=== PATIENT | female | born 1990 | race Two or more races ===

== ENCOUNTER 2024-12-12 08:32 | Outpatient (AMB) | payer MEDICAID, SELFPAY ==
[2024-12-12 08:47] VITALS: BP 105/67; PULSE 81; RESP 16; TEMP 36.6; O2SAT 97; BMI 47.7
--- NOTE | 2024-12-12 08:47 | AMB.OBINITIA ---
Vital Signs 12/12/24 08:47 Height 1.6 m Height Method Stated Weight 122.243 kg Weight Measurement Method Standing Scale BMI 47.7 BP 105/67 Blood Pressure Source Automatic Cuff Blood Pressure Location Left Upper Arm Position Sitting Respiration 16 Pulse 81 Pulse Source Monitor Temp 97.8 F Temp Source Oral Pulse Oximetry (%) 97 Oxygen Delivery Method Room Air Allergies/Home Meds Allergies & Medications Allergies NKA* Allergy (Uncoded 12/12/24 08:49) Medication Reconciliation PNV CMB#95/FERROUS FUMARATE/FA ( MULTIVITAMINS TABLET) 1 tab PO QDAY #0 tabs 05/17/16 [History Confirmed 12/12/24] Intake Visit Data Collection New Patient or Established: New Patient not seen in past 3 years at [facility] (considered New) Reason for Visit:: INITIAL CARE Seen by Clinical Staff ONLY (RN/MA): No Tracing Lathe Set Up Operator Required: No Do You Feel Safe at Home: Yes Authorities Contacted: N/A PCP or OBGYN visit in last 3 months: No Hx Now: Yes Are you currently on any form of Control: No Last menstrual period: 09/26/24 Pain Present Currently: No Pain Scale Used: Hodge-Martin/Numerical Pain scale:: 0 Smoking Status Smoking Status: Never smoker Questionnaires Covid-19 Vaccine Questionnaire Has patient been vacinated for Covid-19 Have you been vacinated for Covid-19: Yes PHQ-9 PHQ-2 Over the last 2 weeks, how often have you been bothered by any of the following problems? 1. Little interest or pleasure in doing things: not at all 2. Feeling down, depressed, or hopeless: not at all Total score: 0 PHQ-9 3. Trouble falling or staying asleep, or sleeping too much: Not at all 4. Feeling tired or having little energy: Not at all 5. Poor appetite or overeating: Not at all 6. Feeling bad about yourself - or that you are a failure or have let yourself or your family down: Not at all 7. Trouble concentrating on things, such as reading the newspaper or watching television: Not at all 8. Moving or speaking so slowly that other people could have noticed? - Or the opposite - being so fidgety or restless that you have been moving around a lot more than usual: not at all 9. Thoughts that you would be better off or of hurting yourself in some way: Not at all Total score: 0 Source: Developed by Drs. Davin Briceño, Laura Funes, Dustin Simmons and colleagues, with an educational theodore from [employer]. 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 FOB in [place] Tobacco History Smoking Status: Never smoker Second Hand Smoke Exposure: No Alcohol History Alcohol Intake: Never Domestic Abuse History Do You Feel Safe at Home: Yes History of Present Illness HPI Narrative The patient is a 34-year-old -0-0-1 history of in 2017 who presents for a new OB appointment. 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 The father the baby is currently residing in [place]. Patient denies any heavy bleeding. No pelvic pain. She has some fatigue breast tenderness and mild nausea. EDC by my ultrasound 07/03/2025. LMP 09/26/2024. OB Ultrasound Indication Indication: Size, dates, viability OB Ultrasound Ultrasound technique: transvaginal Gestational sac assessment: Presence, location, size, shape: Live IUP crown-rump length 3.3 cm corresponding to 10-week 1 day heart tones are noted at 170 bpm. COTTON AGENT: Past Medical History Additional Operations/Hospitalizations (year & reason): The patient has a history of x 1 in 2017 here at [facility] she mated to 4 cm. Baby weighed 9 pounds 8 ounces. She had a mini C-tuck . Other Relevant History: Patient denies any significant past medical history including no asthma, diabetes, or hypertension. Patient has a history of anemia in the past no blood transfusions. OB Initial Visit OB Flowsheet OB Flowsheet Initial Weight: Not Recorded Date <del>?</del> EGA Weight BP Alb Glu CTX Pres Fundal ht FHR Mov Dilation Station Effacement Hx Notes Visit Note 12/12/24 <del>?</del> 10w 1d 122.243 kg 105/67 10 active New OB. Labs done. NIPT ordered. Menstrual History Menstrual reliability: definite Flow: normal Menstrual regularity: irregular Monthly: No Age at menarche: 12 On control pills at conception: No Associated symptoms (LMP): Reports nausea, fatigue and breast tenderness OB History : 2 Para: 1 # of Living Children: 1 Delivery History 1st : Child's name: ELIANE date: 07/11/16 sex: male Gestational age at delivery (weeks): 40 Delivery type: weight (lbs): 4309.127 g Delivery complications: EMERGENCY C SECTION History of depression before or after : No Infection History & Risk Evaluation History of STDs: none Genetic Screening & History Genetic Screening/Teratology Counseling - Includes patient, baby's father, or anyone in either family with: 1. Patient's age 35 years or older as of estimated date of delivery: No 2. Thalassemia (Slovenian, Cymraes, Mediterranean, or Background); MCV less than 80: No 3. Neural Tube Defect (Meningomyelocele, Spina Bifida, or Anencephaly): No 4. Congenital Heart Defect: No 5. Down Syndrome: No 6. Robin-Sachs (Ashkenazi Yazidi, Cajun, [place]er [place]): No 7. Willem Disease (Ashkenazi Yazidi): No 8. Familial Dysautonomia (Ashkenazi Yazidi): No 9. Sickle Cell Disease or Trait (): No 10. Hemophilia or other blood disorders: No 11. Muscular Dystrophy: No 12. Cystic Fibrosis: No 13. Brian's Chorea: No 14. Mental Retardation/Autism: No 15. Other inherited genetic or chromosomal disorder: No 16. Maternal Metabolic Disorder (EG,TYPE 1 Diabetes, PKU): No 17. Patient or baby's father had a child with defects not listed above: No 18. Recurrent loss or a stillbirth: No 19. Medications (including supplements, vitamins, herbs or otc drugs)/illicit/recreational drugs/alcohol since last menstrual period: No 20. Any other: No Infection History 1. Live with someone with TB or exposed to TB: No 2. Rash or viral illness since last menstrual period: No 3. Hepatitis B,C: No Other (see comments) Source: [employer] Review of Systems Constitutional Constitutional: Reports fatigue Gastrointestinal Gastrointestinal: Reports nausea Endocrine Endocrine: Reports fatigue Exam General Limitations: no limitations General Appearance: alert, in no apparent distress, comfortable, cooperative, healthy appearing and well groomed Chest Chest inspection: Present normal inspection and symmetric chest wall rise Resp Respiratory exam: Present normal lung sounds bilaterally Card Cardiovascular exam: Present regular rate, normal rhythm and normal heart sounds Abdominal Abdominal exam: Present soft and normal bowel sounds Extremities Extremities exam: Present normal inspection and full ROM Psych Psychiatric exam: Present normal affect and normal mood Skin Skin exam: Present warm, dry, intact and normal color Office Procedures OBC Clinic LOC & Office Proc's Nursing/Assessment Patient Status: Established Patient OB Clinic Nursing Assessment: Medication Reconciliation, Update PMH in EMR and Vital Signs OB Clinic Coordination of Care: Complex Care and Chronic Disease 1-5, Consent,records obtained, informed consent, Education Simp Pt/Fam, Lab and Imaging orders, Results/Orders obtained and Staff clarify orders Special Needs: Heart tones Established Patient Charge Established Patient Point Assignment: 135 Established Patient Point Charge: EP Level 4 (120-155) Assessment & Plan Diagnosis / Problem List (1) : Status: Acute Qualifiers: Weeks of gestation: 10 weeks Qualified Code(s): Z3A.10 - 10 weeks gestation of Plan: Ordered labs and NIPT. Ordered official ultrasound for dating. (2) Status post primary low transverse section: Status: Acute Plan: For repeat low-transverse section at 39 weeks.
== END 2024-12-12 09:31 | disposition home or self-care (01) ==
LOC: HODSOBC 08:32
PROVIDERS: Supervising Provider Obstetrics & Gynecology; Visit Provider Obstetrics & Gynecology
DX: O09.291 Supervision of pregnancy with other poor reproductive or obstetric history, first trimester (principal); O34.211 Maternal care for low transverse scar from previous cesarean delivery; Z3A.10 10 weeks gestation of pregnancy
CPT/HCPCS: 99214; G0463

== ENCOUNTER 2024-12-26 10:46 | Outpatient (AMB) | payer MEDICAID, SELFPAY ==
--- NOTE | 2024-12-26 10:54 | OBCLNT_ITS ---
Vital Signs 12/26/24 10:59 Height 1.6 m Height Method Stated Weight 68.096 kg Weight Measurement Method Standing Scale BMI 26.6 BP 134/80 H Blood Pressure Source Automatic Cuff Blood Pressure Location Left Upper Arm Position Sitting Respiration 16 Pulse 81 Pulse Source Monitor Temp 98.2 F Temp Source Oral Pulse Oximetry (%) 99 Oxygen Delivery Method Room Air Allergies/Home Meds Allergies & Medications Allergies NKA* Allergy (Uncoded 12/26/24 10:55) Medication Reconciliation PNV CMB#95/FERROUS FUMARATE/FA ( MULTIVITAMINS TABLET) 1 tab PO QDAY #0 tabs 05/17/16 [History Confirmed 12/26/24] Intake Visit Data Collection New Patient or Established: Established Patient (seen at [facility] within 3 years) Reason for Visit:: OBC Seen by Clinical Staff ONLY (RN/MA): No Corporate Quality Assurance Manager Required: No Do You Feel Safe at Home: Yes Authorities Contacted: N/A PCP or OBGYN visit in last 3 months: Yes Date of Last PCP or OBGYN visit: 12/26/24 Hx Now: Yes Are you currently on any form of Control: No Pain Present Currently: No Pain Scale Used: Hodge-Martin/Numerical Pain scale:: 0 Smoking Status Smoking Status: Never smoker Questionnaires Covid-19 Vaccine Questionnaire Has patient been vacinated for Covid-19 Have you been vacinated for Covid-19: No PHQ-9 PHQ-2 Over the last 2 weeks, how often have you been bothered by any of the following problems? 1. Little interest or pleasure in doing things: not at all 2. Feeling down, depressed, or hopeless: not at all Total score: 0 PHQ-9 3. Trouble falling or staying asleep, or sleeping too much: Not at all 4. Feeling tired or having little energy: Not at all 5. Poor appetite or overeating: Not at all 6. Feeling bad about yourself - or that you are a failure or have let yourself or your family down: Not at all 7. Trouble concentrating on things, such as reading the newspaper or watching television: Not at all 8. Moving or speaking so slowly that other people could have noticed? - Or the opposite - being so fidgety or restless that you have been moving around a lot more than usual: not at all 9. Thoughts that you would be better off or of hurting yourself in some way: Not at all Total score: 0 If you checked off any problems, how difficult have these problems made it for you to do your work, take care of things at home, or get along with other people?: not difficult at all Source: Developed by Drs. Davin Briceño, Laura Funes, Dustin Simmons and colleagues, with an educational theodore from [employer]. 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 FOB in [place] Tobacco History Smoking Status: Never smoker Second Hand Smoke Exposure: No Alcohol History Alcohol Intake: Never Domestic Abuse History Do You Feel Safe at Home: Yes Care OB Visit Log OB Flowsheet Initial Weight: Not Recorded Date -?-?-?-?-?-?-?-?-?-?-?-?- EGA Weight BP Alb Glu CTX Pres Fundal ht FHR Mov Dilation Station Effacement Hx Notes Visit Note 12/12/24 -?-?-?-?-?-?-?-?-?-?-?-?- 10w 1d 122.243 kg 105/67 10 active New OB. Labs done. NIPT ordered. 12/26/24 -?-?-?-?-?-?-?-?-?-?-?-?- 12w 1d 68.096 kg 134/80 12 145 active Reviewed labs. Wants NIPT and envelope. Revealed normal genetic testing. LOVE Calculator Estimated Delivery Date Method Current WG Current Estimate 07/09/25 Ultrasound #1 12w 1d Other Estimates 07/03/25 LMP (Certain) 13w 0d Expected Delivery Route/Plan labs: O+/antibody negative/rubella immune/RPR nonreactive/HIV negative/hepatitis C negative/hepatitis B surface antigen negative/GC negative /Chlamydia negative/normal hemoglobin 11.9 /hematocrit 37 NIPT 46XX.// Specific Issue/Plans 34-year-old -0-0-1 Previous 2017 for arrest of dilatation at 4 cm. Baby weighed 9 pounds 8 ounces. For repeat Notes Visit Date: 12/26/24 Last Updated by: Gege Flores (OB Clinic)MD Patient is going to [place] for 3 months. She will be back in March. She will schedule now a return OB visit for March. She was told to get a copy of her records from [place]. She will most likely need a glucose challenge test there and a structural survey before she comes back. Visit Date: 12/12/24 Last Updated by: Gege Flores (OB Clinic)MD Previous for repeat. Office Procedures OBC Clinic LOC & Office Proc's Nursing/Assessment Patient Status: Established Patient OB Clinic Nursing Assessment: Medication Reconciliation, Update PMH in EMR and Vital Signs OB Clinic Coordination of Care: Education Complex Pt/Fam, Consent,records obtained, informed consent, Lab and Imaging orders, Results/Orders obtained and Staff clarify orders Special Needs: Heart tones Established Patient Charge Established Patient Point Assignment: 115 Established Patient Point Charge: EP Level 3 (80-115) Assessment & Plan Diagnosis / Problem List (1) : Status: Acute Qualifiers: Weeks of gestation: 12 weeks Qualified Code(s): Z3A.12 - 12 weeks gestation of (2) Status post primary low transverse section: Status: Acute
[2024-12-26 10:59] VITALS: BP 134/80; PULSE 81; RESP 16; TEMP 36.8; O2SAT 99; BMI 26.6
== END 2024-12-26 12:19 | disposition home or self-care (01) ==
LOC: HODSOBC 10:46
PROVIDERS: Supervising Provider Obstetrics & Gynecology; Visit Provider Obstetrics & Gynecology
DX: O09.291 Supervision of pregnancy with other poor reproductive or obstetric history, first trimester (principal); O34.219 Maternal care for unspecified type scar from previous cesarean delivery; Z3A.12 12 weeks gestation of pregnancy; Z87.59 Personal history of other complications of pregnancy, childbirth and the puerperium
CPT/HCPCS: 99213; G0463